=== PATIENT | male | born 1990 | race Caucasian/White ===

== ENCOUNTER 2022-12-26 13:48 | Emergency (ER) | payer OTHER, BC ==
[2022-12-26 13:57] VITALS: BP 148/92; PULSE 106; RESP 16; TEMP 98.7; BMI 27.8
[2022-12-26] MEDS ORDERED: FLUORESCEIN NA 1 EA STRIP OU ONE (14:22)
[2022-12-26] MEDS ORDERED: FLUORESCEIN NA 1 EA STRIP ONE (14:26)
== END 2022-12-26 16:38 | disposition home or self-care (01) ==
LOC: JERFT 13:48
DX: H57.89 Other specified disorders of eye and adnexa (principal); H57.12 Ocular pain, left eye
CPT/HCPCS: 99283-25

== ENCOUNTER 2023-01-03 14:55 | Emergency (ER) | payer BC, OTHER ==
[2023-01-03 15:12] VITALS: BP 156/71; PULSE 104; RESP 20; TEMP 98.8; BMI 32.0
[2023-01-03] MEDS ORDERED: TETRACAINE 0.5% OPHTH SOLN 2 ML BOTTLE OS ONE (15:41)
[2023-01-03] MEDS ORDERED: TETRACAINE 0.5% OPHTH SOLN 2 ML BOTTLE ONE (15:48)
[2023-01-03] MEDS ORDERED: FLUORESCEIN NA 1 EA STRIP ONE (15:48)
== END 2023-01-03 15:58 | disposition home or self-care (01) ==
LOC: JERFT 14:55 → JER 14:55 → JERFT 15:58
DX: H57.12 Ocular pain, left eye (principal); R22.0 Localized swelling, mass and lump, head; H11.32 Conjunctival hemorrhage, left eye; Y04.2XXA Assault by strike against or bumped into by another person, initial encounter
CPT/HCPCS: 99283-25